=== PATIENT | male | born 1935 | race Caucasian/White ===

== ENCOUNTER 2016-07-28 08:49 | Outpatient (CLI) | payer MEDICARE, BC | END 2016-07-28 08:50 | disposition home or self-care (01) | LOC: BURLAB 08:49 | PROVIDERS: ATTEND Urology | DX: N42.9 Disorder of prostate, unspecified (principal) | CPT/HCPCS: 36415; 84153 ==

== ENCOUNTER 2016-09-13 09:37 | Outpatient (CLI) | payer MEDICARE, BC ==
[2016-09-13 10:08] LABS: Bilirubin Negative (Negative); Blood, Urine Trace (Negative); Clarity Slightly Cloudy (Clear); Glucose, Urine (Dipstick) Negative (Negative); Leukocyte Negative (Negative); Nitrite Negative (Negative); Protein, Urine (Dipstick) Negative (Neg-Trace); Urobilinogen 0.2 mg/dL (0.2-1.0)
[2016-09-13 10:20] LABS: Bacteria/HPF Rare-Few HPF (None Seen); RBC/HPF 0-3 HPF (0-3); Squamous Epithelial 0-3 HPF (0-3); WBC/HPF 0-3 HPF (0-3)
[2016-09-13 10:23] LABS: INR-International Normal Ratio 2.7; Prothrombin Time 29.7 SEC (12.0-14.7)
[2016-09-13 10:33] LABS: ALT (SGPT) 16 U/L (8-55); AST (SGOT) 17 U/L (5-34); Albumin 4.3 g/dL (3.4-4.8); Alkaline Phosphatase 66 U/L (40-150); Anion Gap 14 mmol/L (10-20); BUN (Urea Nitrogen) 14 mg/dL (8.4-25.7); Bilirubin, Total 0.9 mg/dL (0.2-1.2); CK (CPK) 87 U/L (30-200); Calc. Creatinine Clearance 0 mL/min (70-130); Calcium 8.9 mg/dL (7.8-10.44); Carbon Dioxide 23 mmol/L (23-31); Cardiac Risk 3.2 (Less than 4.5); Chloride 108 mmol/L (98-107); Cholesterol 141 mg/dl (< 200 Desired); Estimated GFR-MDRD 66; Globulin 2.5 g/dL (2.4-3.5); Glucose 94 mg/dL (83-110); HDL Cholesterol 44 mg/dL (>60 Neg Risk); LDL Cholesterol, Calculated 77 mg/dL; Potassium 4.3 mmol/L (3.5-5.1); Protein, Total 6.8 g/dL (5.8-8.1); Sodium 141 mmol/L (136-145); Triglycerides 98 mg/dL (Less than 150)
[2016-09-13 10:49] LABS: Free T4 (Free Thyroxine) 1.19 ng/dL (0.70-1.48); Thyroid Stimulating Hormone 1.036 uIU/mL (0.35-4.94)
[2016-09-13 11:16] LABS: Hemoglobin 15.3 g/dL (14.0-18.0); Mean Corpuscular HGB CONC 33.4 g/dL (32.0-36.0); Mean Corpuscular Hemoglobin 31.3 pg (27.0-31.0); Mean Corpuscular Volume 93.5 fl (80.0-94.0); Mean Platelet Volume 7.8 fL (7.4-10.4); Platelet Count 158 thou/uL (130-400); Red Blood Cell (RBC) Count 4.88 mill/uL (4.70-6.10); White Blood Cell (WBC) Count 5.9 thou/uL (4.8-10.8)
== END 2016-09-13 09:38 | disposition home or self-care (01) ==
LOC: BURLAB 09:37
PROVIDERS: ATTEND Internal Medicine
DX: Z00.00 Encounter for general adult medical examination without abnormal findings (principal); I10 Essential (primary) hypertension; E03.9 Hypothyroidism, unspecified; N40.0 Benign prostatic hyperplasia without lower urinary tract symptoms; I48.91 Unspecified atrial fibrillation; Z79.899 Other long term (current) drug therapy
CPT/HCPCS: 36415; 80053; 80061; 81003; 81015; 82550; 84439; 84443; 85027; 85610

== ENCOUNTER 2017-10-22 00:02 | Emergency (ER) | payer MEDICARE, BC ==
[2017-10-22] MEDS ORDERED: Amoxicillin/Potassium Clav 875 MG TAB ONE (00:19)
== END 2017-10-22 00:20 | disposition home or self-care (01) ==
LOC: BURERS 00:02
DX: R05 Cough (principal); I25.10 Atherosclerotic heart disease of native coronary artery without angina pectoris; E78.5 Hyperlipidemia, unspecified; I10 Essential (primary) hypertension; I25.2 Old myocardial infarction; Z79.899 Other long term (current) drug therapy; Z79.82 Long term (current) use of aspirin; Z79.01 Long term (current) use of anticoagulants
CPT/HCPCS: 99284

== ENCOUNTER 2018-03-29 05:57 | Emergency (ER) | payer MEDICARE, BC ==
[2018-03-29 06:58] LABS: Band 2 % (5-11); Hemoglobin 14.4 g/dL (14.0-18.0); Lymphocytes 26 % (21-51); MDiff Complete? YES; Mean Corpuscular HGB CONC 31.6 g/dL (32.0-36.0); Mean Corpuscular Hemoglobin 28.4 pg (27.0-31.0); Mean Corpuscular Volume 89.9 fL (78.0-98.0); Mean Platelet Volume 7.5 fL (7.4-10.4); Monocytes 2 % (0-10); Neutrophil 70 % (42-75); Platelet Count 202 thou/uL (130-400); RBC Distribution Width 13.8 % (11.5-14.5); Red Blood Cell (RBC) Count 5.06 mill/uL (4.70-6.10); White Blood Cell (WBC) Count 9.3 thou/uL (4.8-10.8)
[2018-03-29 07:09] LABS: ALT (SGPT) 20 U/L (8-55); AST (SGOT) 18 U/L (5-34); Albumin 4.3 g/dL (3.4-4.8); Alkaline Phosphatase 80 U/L (40-150); Anion Gap 14 mmol/L (10-20); BUN (Urea Nitrogen) 17 mg/dL (8.4-25.7); Calc. Creatinine Clearance 0 mL/min (70-130); Calcium 9.5 mg/dL (7.8-10.44); Carbon Dioxide 23 mmol/L (23-31); Chloride 110 mmol/L (98-107); Estimated GFR-MDRD 69; Globulin 2.6 g/dL (2.4-3.5); Glucose 96 mg/dL (83-110); Potassium 4.1 mmol/L (3.5-5.1); Protein, Total 6.9 g/dL (5.8-8.1); Sodium 143 mmol/L (136-145)
[2018-03-29] MEDS ORDERED: Nitroglycerin 2% Ointment 1 INCH/1 GM Packet ONE (07:26)
[2018-03-29] MEDS ORDERED: Furosemide 40 MG/4 ML VIAL ONE (07:26)
[2018-03-29 07:47] LABS: INR-International Normal Ratio 2.9; PTT 51.8 SEC (22.9-36.1); Prothrombin Time 30.3 SEC (12.0-14.7)
--- NOTE | 2018-03-29 08:28 | RAD ---
CHEST 1 VIEW: History Chest pain and dyspnea. COMPARISON: Chest 2 views 10/22/2017. FINDINGS: Heart size is enlarged. Small effusions. Mild pulmonary edema. No pneumothorax. Fracture superior most midline sternotomy wire. No evidence of dehiscence. IMPRESSION: Cardiomegaly, mild edema, and small effusions. POS: [facility]
== END 2018-03-29 10:25 | disposition home or self-care (01) ==
LOC: BURERS 05:57
DX: I11.0 Hypertensive heart disease with heart failure (principal); I50.9 Heart failure, unspecified; I25.10 Atherosclerotic heart disease of native coronary artery without angina pectoris; E78.5 Hyperlipidemia, unspecified; I25.2 Old myocardial infarction; Z79.899 Other long term (current) drug therapy; Z79.82 Long term (current) use of aspirin; Z79.01 Long term (current) use of anticoagulants
CPT/HCPCS: 71045; 80053; 83880; 84484; 85025; 85610; 85730; 93005; 94760; 96374; J1940

== ENCOUNTER 2018-11-20 05:46 | Emergency (ER) | payer MEDICARE, BC ==
[2018-11-20 06:21] LABS: #Basophils 0.1 thou/uL (0.0-0.2); #Eosinphils 0.1 thou/uL (0.0-0.7); #Lymphocytes 2.5 thou/uL (1.20-3.40); #Monocytes 0.5 thou/uL (0.11-0.59); #Neutrophils 5.3 thou/uL (1.40-6.50); %Basophils 0.8 % (0.0-1.0); %Eosinophils 0.9 % (0.0-10.0); %Lymphocytes 29.5 % (21.0-51.0); %Monocytes 6.2 % (0.0-10.0); %Neutrophils 62.7 % (42.0-75.0); Hemoglobin 14.2 g/dL (14.0-18.0); Mean Corpuscular HGB CONC 31.7 g/dL (32.0-36.0); Mean Corpuscular Hemoglobin 28.6 pg (27.0-31.0); Mean Corpuscular Volume 90.2 fL (78.0-98.0); Mean Platelet Volume 8.4 fL (7.4-10.4); Platelet Count 179 thou/uL (130-400); Red Blood Cell (RBC) Count 4.96 mill/uL (4.70-6.10); White Blood Cell (WBC) Count 8.4 thou/uL (4.8-10.8)
[2018-11-20 06:23] LABS: MDiff Complete? YES; Manual Diff?? NO
[2018-11-20 06:26] LABS: INR-International Normal Ratio 2.8; PTT 53.6 SEC (22.9-36.1); Prothrombin Time 29.2 SEC (12.0-14.7)
[2018-11-20 06:35] LABS: ALT (SGPT) 22 U/L (8-55); AST (SGOT) 26 U/L (5-34); Albumin 4.7 g/dL (3.4-4.8); Alkaline Phosphatase 82 U/L (40-150); Anion Gap 16 mmol/L (10-20); BUN (Urea Nitrogen) 22 mg/dL (8.4-25.7); Bilirubin, Total 0.7 mg/dL (0.2-1.2); Calc. Creatinine Clearance 0 mL/min (70-130); Carbon Dioxide 27 mmol/L (23-31); Chloride 105 mmol/L (98-107); Estimated GFR-MDRD 36; Glucose 107 mg/dL (83-110); Potassium 4.1 mmol/L (3.5-5.1); Protein, Total 7.7 g/dL (5.8-8.1); Sodium 144 mmol/L (136-145)
[2018-11-20] MEDS ORDERED: Furosemide 40 MG/4 ML VIAL ONE (06:50)
--- NOTE | 2018-11-20 07:01 | RAD ---
PORTABLE CHEST: Date: 11/20/18 An AP portable film at 0618 hours is compared with the 03/29/18 study. Mild cardiomegaly is about the same as before. There are no congestive changes or pleural effusions. No lobar consolidation seen. Median sternotomy sutures are noted as usual. IMPRESSION: Stable chest showing cardiomegaly, but no acute findings. POS: HOME
== END 2018-11-20 07:18 | disposition short-term general hospital (02) ==
LOC: BURERS 05:46
DX: I11.0 Hypertensive heart disease with heart failure (principal); I50.9 Heart failure, unspecified; I25.10 Atherosclerotic heart disease of native coronary artery without angina pectoris; E78.5 Hyperlipidemia, unspecified; I25.2 Old myocardial infarction; Z79.82 Long term (current) use of aspirin; Z79.01 Long term (current) use of anticoagulants; Z79.899 Other long term (current) drug therapy
CPT/HCPCS: 71045; 80053; 83880; 84484; 85025; 85610; 85730; 93005; 94760; 96374; J1940

== ENCOUNTER 2022-01-27 11:22 | Outpatient (CLI) | payer MEDICARE, BC | END 2022-01-27 11:23 | disposition home or self-care (01) | LOC: BURRAD 11:22 | PROVIDERS: ATTEND Internal Medicine | DX: R06.02 Shortness of breath (principal) | CPT/HCPCS: 71046 ==

== ENCOUNTER 2022-05-31 06:01 | Emergency (ER) | payer MEDICARE, BC ==
[2022-05-31 07:07] LABS: #Basophils 0.1 thou/uL (0.0-0.2); #Lymphocytes 1.8 thou/uL (1.20-3.40); #Monocytes 0.6 thou/uL (0.11-0.59); #Neutrophils 5.6 thou/uL (1.40-6.50); %Eosinophils 0.6 % (0.0-10.0); %Lymphocytes 22.6 % (21.0-51.0); %Monocytes 7.8 % (0.0-10.0); Hemoglobin 13.9 g/dL (14.0-18.0); Mean Corpuscular HGB CONC 32.6 g/dL (32.0-36.0); Mean Corpuscular Volume 85.9 fl (78.0-98.0); Mean Platelet Volume 8.3 fL (7.4-10.4); Platelet Count 183 10x3/uL (130-400); RBC Distribution Width 14.1 % (11.5-14.5); Red Blood Cell (RBC) Count 4.97 mill/uL (4.70-6.10); White Blood Cell (WBC) Count 8.2 10x3/uL (4.8-10.8)
[2022-05-31 07:19] LABS: ALT (SGPT) 23 U/L (8-55); AST (SGOT) 26 U/L (5-34); Albumin 4.2 g/dL (3.4-4.8); Alkaline Phosphatase 70 U/L (40-110); Anion Gap 15 mmol/L (10-20); BUN (Urea Nitrogen) 25 mg/dL (8.4-25.7); Bilirubin, Total 0.9 mg/dL (0.2-1.2); Calc. Creatinine Clearance 0 mL/min (70-130); Carbon Dioxide 22 mmol/L (23-31); Chloride 108 mmol/L (98-107); Estimated GFR 56; Globulin 2.8 g/dL (2.4-3.5); Glucose 104 mg/dL (83-110); Potassium 4.4 mmol/L (3.5-5.1); Sodium 141 mmol/L (136-145)
[2022-05-31] MEDS ORDERED: Nitroglycerin 0.4 MG TAB 1 EACH ONE (07:46)
[2022-05-31] MEDS ORDERED: Furosemide 100 MG/10 ML VIAL ONE (07:46)
== END 2022-05-31 08:15 | disposition home or self-care (01) ==
LOC: BURERS 06:01
DX: I11.0 Hypertensive heart disease with heart failure (principal); I50.9 Heart failure, unspecified; E78.5 Hyperlipidemia, unspecified; I25.10 Atherosclerotic heart disease of native coronary artery without angina pectoris; Z79.82 Long term (current) use of aspirin
CPT/HCPCS: 71045; 80053; 83880; 84484; 85025; 93005; 96374; J1940

== ENCOUNTER 2022-12-20 14:03 | Emergency (ER) | payer MEDICARE, BC ==
[2022-12-20 14:24] LABS: #Basophils 0.1 thou/uL (0.0-0.2); #Eosinphils 0.1 thou/uL (0.0-0.7); #Lymphocytes 2.7 thou/uL (1.20-3.40); #Monocytes 0.6 thou/uL (0.11-0.59); #Neutrophils 5.9 thou/uL (1.40-6.50); %Basophils 0.8 % (0.0-1.0); %Eosinophils 0.5 % (0.0-10.0); %Lymphocytes 29.3 % (21.0-51.0); %Monocytes 6.8 % (0.0-10.0); %Neutrophils 62.5 % (42.0-75.0); Hematocrit 43.5 % (42.0-52.0); Mean Corpuscular HGB CONC 32.2 g/dL (32.0-36.0); Mean Corpuscular Hemoglobin 28.5 pg (27.0-31.0); Mean Corpuscular Volume 88.4 fl (78.0-98.0); Mean Platelet Volume 7.9 fL (7.4-10.4); Platelet Count 222 10x3/uL (130-400); Red Blood Cell (RBC) Count 4.92 mill/uL (4.70-6.10); White Blood Cell (WBC) Count 9.4 10x3/uL (4.8-10.8)
[2022-12-20] MEDS ORDERED: Mag-Al Plus 1200 MG/1200 MG/120 MG/30 ML UDCUP ONE (14:25)
[2022-12-20] MEDS ORDERED: Dicyclomine 20 MG/2 ML VIAL ONE (14:25)
[2022-12-20] MEDS ORDERED: Famotidine/PF 20 mg/2ml Vial ONE (14:25)
[2022-12-20] MEDS ORDERED: Lidocaine Viscous Sol 2% 15 ml UD Cup ONE (14:25)
[2022-12-20 14:41] LABS: ALT (SGPT) 16 U/L (8-55); AST (SGOT) 17 U/L (5-34); Albumin 4.5 g/dL (3.4-4.8); Alkaline Phosphatase 89 U/L (40-110); Anion Gap 17 mmol/L (10-20); BUN (Urea Nitrogen) 18 mg/dL (8.4-25.7); Bilirubin, Total 1.6 mg/dL (0.2-1.2); Calc. Creatinine Clearance 0 mL/min (70-130); Calcium 9.4 mg/dL (7.8-10.44); Carbon Dioxide 23 mmol/L (23-31); Chloride 105 mmol/L (98-107); Estimated GFR 50; Globulin 3.1 g/dL (2.4-3.5); Glucose 92 mg/dL (83-110); Potassium 3.7 mmol/L (3.5-5.1); Protein, Total 7.6 g/dL (5.8-8.1); Sodium 141 mmol/L (136-145)
== END 2022-12-20 15:14 | disposition home or self-care (01) ==
LOC: BURERS 14:03
DX: K59.00 Constipation, unspecified (principal); I10 Essential (primary) hypertension; I25.10 Atherosclerotic heart disease of native coronary artery without angina pectoris; E78.5 Hyperlipidemia, unspecified; I25.2 Old myocardial infarction; Z86.73 Personal history of transient ischemic attack (TIA), and cerebral infarction without residual deficits; Z95.1 Presence of aortocoronary bypass graft; Z79.82 Long term (current) use of aspirin; Z79.899 Other long term (current) drug therapy
CPT/HCPCS: 74176; 80053; 85025; 96374; S0028

== ENCOUNTER 2023-04-19 02:56 | Emergency (ER) | payer MEDICARE, BC ==
[2023-04-19 03:49] LABS: #Basophils 0.1 thou/uL (0.0-0.2); #Eosinphils 0.1 thou/uL (0.0-0.7); #Monocytes 0.5 thou/uL (0.11-0.59); #Neutrophils 5.6 thou/uL (1.40-6.50); %Basophils 1.3 % (0.0-1.0); %Eosinophils 1.1 % (0.0-10.0); %Lymphocytes 24.2 % (21.0-51.0); %Monocytes 5.5 % (0.0-10.0); %Neutrophils 67.9 % (42.0-75.0); Hematocrit 40.9 % (42.0-52.0); Hemoglobin 13.4 g/dL (14.0-18.0); Mean Corpuscular HGB CONC 32.8 g/dL (32.0-36.0); Mean Corpuscular Hemoglobin 28.4 pg (27.0-31.0); Mean Corpuscular Volume 86.6 fl (78.0-98.0); Mean Platelet Volume 8.6 fL (7.4-10.4); Platelet Count 216 10x3/uL (130-400); RBC Distribution Width 13.3 % (11.5-14.5); Red Blood Cell (RBC) Count 4.72 mill/uL (4.70-6.10); White Blood Cell (WBC) Count 8.3 10x3/uL (4.8-10.8)
[2023-04-19 04:04] LABS: AST (SGOT) 19 U/L (5-34); Albumin 4.2 g/dL (3.4-4.8); Alkaline Phosphatase 74 U/L (40-110); Anion Gap 19 mmol/L (10-20); BUN (Urea Nitrogen) 38 mg/dL (8.4-25.7); Calc. Creatinine Clearance 0 mL/min (70-130); Calcium 9.4 mg/dL (7.8-10.44); Chloride 107 mmol/L (98-107); Estimated GFR 43; Globulin 2.4 g/dL (2.4-3.5); Glucose 116 mg/dL (83-110); Lipase 26 U/L (8-78); Potassium 4.1 mmol/L (3.5-5.1); Protein, Total 6.6 g/dL (5.8-8.1); Sodium 143 mmol/L (136-145)
[2023-04-19 04:08] LABS: Troponin I 0.021 ng/mL (< 0.028)
[2023-04-19 04:11] LABS: ALT (SGPT) 23 U/L (8-55); Bilirubin, Total 0.9 mg/dL (0.2-1.2); Carbon Dioxide 21 mmol/L (23-31)
[2023-04-19] MEDS ORDERED: Furosemide 40 MG (4 mL) VIAL ONE (04:48)
== END 2023-04-19 05:26 | disposition home or self-care (01) ==
LOC: BURERS 02:56
DX: I11.0 Hypertensive heart disease with heart failure (principal); I50.9 Heart failure, unspecified; I25.10 Atherosclerotic heart disease of native coronary artery without angina pectoris; E78.5 Hyperlipidemia, unspecified; Z79.899 Other long term (current) drug therapy; Z79.82 Long term (current) use of aspirin
CPT/HCPCS: 36415; 71045; 80053; 83690; 83880; 84484; 85025; 85379; 93005; 96374; J1940